=== PATIENT | male | born 1940 | race Caucasian/White ===

== ENCOUNTER 2017-07-13 10:45 | Outpatient (CLI) | payer MEDICARE, OTHER ==
[~2017-07-13] VITALS: Ht 175.3 cm; Wt 86.2 kg
[2017-07-13 11:06] VITALS: BP 134/85
--- NOTE | 2017-07-13 11:13 | HISTORY AND PHYSICAL ---
DATE OF SERVICE: CHIEF COMPLAINT: To have ganglion removed from the right foot this Thursday by Dr. Kaur. ALLERGIC TO MEDICATIONS: Denies. MEDICATIONS NOW ON: Denies. PREVIOUS SURGERY: Gallbladder in 2004, and tonsils at age 6. FAMILY HISTORY: Denies asthma, TB, diabetes, heart disease, lung disease, cancer. REVIEW OF SYSTEMS: HEAD: Denies headache, dizziness, or fainting. EYES, EARS, NOSE AND THROAT: Denies diplopia, tinnitus or sore throat. RESPIRATORY: Denies ever smoking. Denies asthma, TB, coughing congestion, or wheezing. HEART: No history of heart problems, chest pain or heart murmur. GASTROINTESTINAL: Appetite good. Denies blood in stools, diarrhea, constipation, also vomiting. GENITOURINARY: Denies blood, pain, or frequency. PHYSICAL EXAMINATION: GENERAL: The patient is a white male, well nourished, well developed, in no acute respiratory distress at rest. VITAL SIGNS: Pulse 64, blood pressure 130/80, weight 189. HEENT: Ears are not inflamed. Eyes, no conjunctivitis or icterus. Throat, not inflamed. NECK: Thyroid not enlarged. No abnormal cervical lymphadenopathy noted. HEART: Regular rate and rhythm. LUNGS: Clear to auscultation. ABDOMEN: Soft. Liver and spleen nonpalpable. EXTREMITIES: No pretibial edema. Good dorsalis pedis pulses. ASSESSMENT AND PLAN: The patient is okay to have surgery. I will be on standby if the patient has any problem. Job ID: [id number] DocumentID: [id number] Dictated Date: 07/13/2017 10:20:55 Donation Specialist Date: 07/13/2017 10:58:24 Dictated By: ITZEL DANIEL DO
== END 2017-07-13 11:05 | disposition home or self-care (01) ==
LOC: PREOP 10:45
PROVIDERS: ATTEND Podiatrist Foot Surgery
DX: Z01.818 Encounter for other preprocedural examination (principal); Z11.2 Encounter for screening for other bacterial diseases; M67.471 Ganglion, right ankle and foot
CPT/HCPCS: 87081

== ENCOUNTER 2017-07-17 08:00 | Day surgery (SDC) | payer MEDICARE, OTHER ==
[~2017-07-17] VITALS: Ht 175.3 cm; Wt 86.2 kg
[2017-07-17] MEDS ORDERED: NS (IVPB) 100 ML ONE (08:19)
[2017-07-17] MEDS ORDERED: ceFAZolin 1,000 MG (ANCEF) VIAL ONE (08:19)
[2017-07-17 08:33] VITALS: BP 131/93
[2017-07-17] MEDS: LACTATED RINGERS 1,000 ML IV PRN ×2 (08:33→10:22)
[2017-07-17] MEDS ORDERED: ceFAZolin INJECTION 1,000 MG in NS (IVPB) 100 ML IV ONE (08:45)
[2017-07-17] MEDS ORDERED: MEPIVACAINE (CARBOCAINE) 2% 20 ML VIAL ONE (09:00)
[2017-07-17] MEDS ORDERED: BUPIVACAINE 0.5% 30 ML (SENSORCAINE) VIAL ONE (09:00)
[2017-07-17] MEDS ORDERED: fentaNYL INJECTION 100 MCG/2 ML AMP ONE (09:12)
[2017-07-17] MEDS ORDERED: MIDAZOLAM 2 MG/2 ML (VERSED) VIAL ONE (09:13)
--- NOTE | 2017-07-17 09:18 | Progress Note-Pre Operative ---
Pre-Operative Progress Note H&P Reviewed The H&P was reviewed, patient examined and no changes noted. Date Seen by Provider: Jul 17, 2017 Time Seen by Provider: 09:17 Date H&P Reviewed: Jul 17, 2017 Time H&P Reviewed: 09:18 Pre-Operative Diagnosis: ganglion cyst right foot with dorsal tarsal bossing ITZEL POE DPM Jul 17, 2017 09:18
[2017-07-17] MEDS ORDERED: ONDANSETRON 4 MG/2 ML (SDV) Z0FRAN ONE (09:37)
[2017-07-17] MEDS ORDERED: SEVOFLURANE (ULTANE) 15 ML INHAL SOLN ONE ×4 (09:37→10:23)
[2017-07-17] MEDS ORDERED: LIDOCAINE PF 2% 5 ML (XYLOCAINE) VIAL ONE (09:37)
[2017-07-17] MEDS ORDERED: LIDOCAINE JELLY 2% (XYLOCAINE) 5 ML TUBE ONE (09:37)
[2017-07-17] MEDS ORDERED: proPOfol 200 MG/20 ML (DIPRIVAN) VIAL IV ONE (09:37)
--- NOTE | 2017-07-17 10:40 | Progress Note-Post Operative ---
Post-Operative Progess Note Surgeon (s)/Repairer Auto Clocks (s) Surgeon ITZEL POE DPM Repairer Auto Clocks: none Pre-Operative Diagnosis ganglion cyst right foot with dorsal tarsal bossing Post-Operative Diagnosis same Procedure & Operative Findings Date of Procedure 07/17/17 Procedure Performed/Findings excision of ganglion cyst and dorsal bossing Anesthesia Type jean carlos with infiltration Estimated Blood Loss Estimated blood loss (mL): min Specimens/Packing Specimens Removed ganglion cyst from right foot Packing: none ITZEL POE DPM Jul 17, 2017 10:40 am
--- NOTE | 2017-07-17 10:41 | Discharge Instructions ---
Discharge Instructions Discharge Medications New, Converted or Re-Newed RX: RX Given to Pt/Family Patient Instructions Patient Instructions 1. Follow up in office in 2 weeks. 2. Diet as tolerated. 3. Activity as tolerated. Activity & Diet Activity as Tolerated: Yes ITZEL POE DPM Jul 17, 2017 10:41 am
[2017-07-17] MEDS ORDERED: LACTATED RINGERS 1,000 ML IV SCH (10:42)
[2017-07-17] MEDS ORDERED: HYDROcodone/APAP 5 MG/325 MG (LORTAB) TAB PO PRN (10:45)
[2017-07-17] MEDS ORDERED: MEPERIDINE (DEMEROL) INJ 50 MG/ML IVP PRN (10:45)
[2017-07-17] MEDS ORDERED: ONDANSETRON 4 MG/2 ML (SDV) Z0FRAN IVP PRN (10:45)
[2017-07-17] MEDS ORDERED: morphine INJ 10 MG/ML 1ML (SYR OR VIAL) IVP PRN (10:45)
--- NOTE | 2017-07-17 11:17 | Diagnostic Imaging Report ---
INDICATION: Postop right foot pain. COMPARISON: None. FINDINGS: Two radiographic views of the right foot were obtained. There is mild soft tissue edema and soft tissue emphysema. No unexpected radiopaque foreign bodies are seen. Degenerative changes of the right foot are noted. There is however no evidence of acute fracture or dislocation. Bony structures are intact. Joint spaces are otherwise maintained. IMPRESSION: Mild soft tissue edema and emphysema. This is not unexpected given patient's recent postsurgical status. No unexpected radiopaque foreign bodies are seen. Dictated by: Dictated on workstation # [id number]
[2017-07-17 11:25] VITALS: BP 142/88
[2017-07-17 11:55] VITALS: BP 144/85
[2017-07-17 12:25] VITALS: BP 136/91
--- NOTE | 2017-07-17 12:49 | Physical Therapy Progress Note ---
Therapy Progress Note Patient is WBAT right foot with use of crutches he has established and has use prior. No skilled PT indicated. 1 visit RADHA PRICE PT Jul 17, 2017 12:49
[2017-07-17 12:55] VITALS: BP 136/91
--- NOTE | 2017-07-17 14:09 | Anesthesia-General Post-Op ---
General Patient Condition Mental Status/LOC: Same as Preop Cardiovascular: Satisfactory Nausea/Vomiting: Absent Respiratory: Satisfactory Pain: Controlled Complications: Absent Post Op Complications Complications None Follow Up Care/Instructions Patient Instructions None needed. Anesthesia/Patient Condition Patient Condition Patient is doing well, no complaints, stable vital signs, no apparent adverse anesthesia problems. No complications reported per nursing. RM CAMPBELL CRNA Jul 17, 2017 14:09
--- NOTE | 2017-07-17 14:38 | OPERATIVE REPORT ---
DATE OF SERVICE: 07/17/2017 PREOPERATIVE DIAGNOSIS: Ganglion cyst, dorsum right foot with dorsal tarsal bossing. POSTOPERATIVE DIAGNOSIS: Ganglion cyst, dorsum right foot with dorsal tarsal bossing. NAME OF OPERATION: Excision of ganglion cyst, dorsum right foot with excision of dorsal exostosis and tarsal bossing. DESCRIPTION OF OPERATION: With the patient in supine position, having been effected by a general anesthetic and local anesthetic infiltration utilizing 6 mL of a 50:50 mixture of 0.5% Marcaine plain and 1% Carbocaine plain, sterile prep and drape were performed and a Jordi bandage was applied above the level of the right ankle. A 5 cm curvilinear incision was made over the dorsal aspect of the right foot, deepened with sharp and blunt dissection, vital structures identified and retracted. A well-developed fusiform fibrofatty mass was noted on the dorsum of the right foot that appeared to be in a linear fashion along the lines of the extensor brevis muscle belly. This was excised in toto. Dissection was carried deep to the second and third metatarsal cuneiform complex. Vital structures again were identified and retracted and a dorsal exostosis was noted at the same location. This was excised in toto with the use of a bone rongeur and the remaining bony surface was rasped smooth. The area was inspected for any other anatomical abnormalities and none were noted. Deep closure was accomplished via continuous suture of 3-0 Vicryl. Skin was reapproximated with continuous locked suture of 4-0 Prolene. Tourniquet was released. Blood flow returned to the digits, which was within normal limits. Adaptic and sterile corrective compressive wet to dry Betadine dressings were applied, carried above the level of the right ankle and covered with circular Coban. The patient tolerated the procedure well with minimal blood loss, left the OR to the PAR and will be seen in the office in 2 weeks for appropriate followup care. Job ID: [id number] DocumentID: [id number] Dictated Date: 07/17/2017 10:54:56 Flat Clothier Date: 07/17/2017 14:37:59 Dictated By: ITZEL POE DPM
== END 2017-07-17 12:55 | disposition home or self-care (01) ==
LOC: SDC 08:00
PROVIDERS: ATTEND Podiatrist Foot Surgery
DX: M67.471 Ganglion, right ankle and foot (principal)
CPT/HCPCS: 73620

== ENCOUNTER 2018-10-04 11:11 | Emergency (ER) | payer MEDICARE, OTHER ==
[~2018-10-04] VITALS: Ht 175.3 cm; Wt 79.4 kg
[2018-10-04] MEDS ORDERED: KETOROLAC 30 MG/ML VIAL IM ONE (11:45)
--- NOTE | 2018-10-04 11:45 | ED Fall/Injury ---
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 PT C/O RIGHT SHOULDER PAIN THAT RADIATES TO LEFT PEC MUSCLE. PT STATES HE DID HIT HIS HEAD BUT DENIES CONFUSION. PT DENIES BLOOD THINNERS. PT DENIES NUMBNESS OR TINGLING IN HIS EXTREMETIES. Source: patient Exam Limitations: no limitations History of Present Illness Date Seen by Provider: Oct 04, 2018 Time Seen by Provider: 11:30 Initial Comments Patient presents to ER with his with chief complaint that one week ago he was in the back of his truck working and he fell out onto his right shoulder. He did not get it checked out that time he was just sore. He said he felt like the wind was knocked out of him and denies striking his head or loss of consciousness. He does not take a blood thinner. He does not have any significant medical history. He said his pain is continued to persist and it's very hard for him to take deep breaths without causing worsening pain. No cough fevers chills. He is concerned that if he goes on to long he might end up with a pneumonia and that he may have broke a rib. He did try some ibuprofen initially but said that it did not help much so he has not been taking anything for the pain. Allergies and Home Medications Allergies Coded Allergies: No Known Drug Allergies (Unverified , 07/13/17) Home Medications No Active Prescriptions or Reported Meds Patient Home Medication List Home Medication List Reviewed: Yes Review of Systems Review of Systems Constitutional: No chills, No fever Eyes: Denies Blindness, Denies Blurred Vision Ears, Nose, Mouth, Throat: denies ear pain, denies ear discharge Respiratory: No cough, No short of breath Cardiovascular: No chest pain, No edema Gastrointestinal: No abdominal pain, No constipation, No nausea Past Jykfdfy-Otumig-Ntrele Hx Patient Social History Alcohol Use: Denies Use Recreational Drug Use: No Smoking Status: Never a Smoker Recent Foreign Travel: No Contact w/Someone Who Travel: No Recent Infectious Disease Expo: No Recent Hopitalizations: No Physical Abuse: No Sexual Abuse: No Mistreated: No Fear: No Seasonal Allergies Seasonal Allergies: No Past Medical History Surgeries: Yes Gallbladder Respiratory: No Cardiac: No Neurological: No Gastrointestinal: No Musculoskeletal: No Endocrine: No Cancer: Yes Skin What Type of Treatment Did You: Surgical Intervention Psychosocial: No Integumentary: No Blood Disorders: No Physical Exam Vital Signs Vital Signs - First Documented 10/04/18 11:23 Temp 97.6 Pulse 75 Resp 18 B/P (MAP) 133/83 (100) Pulse Ox 96 O2 Delivery Room Air Capillary Refill : Less Than 3 Seconds Height, Weight, BMI Height: 5'9.00" Weight: 175lbs. 0.0oz. 79.582639kw; 28.1 BMI Method:Stated General Appearance: WD/WN, no apparent distress HEENT: PERRL/EOMI, normal ENT inspection Neck: full range of motion, normal inspection Cardiovascular: normal peripheral pulses, regular rate, rhythm Respiratory: lungs clear, normal breath sounds, no respiratory distress, no accessory muscle use, other (anterior midclavicular superior chest wall is exquisitely tender to palpation. He has some tenderness along the clavicle as well as on flexion of the pectoralis muscles) Neurologic/Psychiatric: no motor/sensory deficits, alert, normal mood/affect, oriented x 3 Skin: normal color, warm/dry Harrison Coma Score Best Eye Response: (4) Open Spontaneously Best Verbal Response: (5) Oriented Best Motor Response: (6) Obeys Commands Nati Total: 15 Progress/Results/Core Measures Results/Orders My Orders Orders - TRISTAN TERRY Ketorolac Injection (Toradol Injection) (10/04/18 11:45) Ribs/Unilateral With Chest (10/04/18 11:37) Shoulder, Right, 3 Views (10/04/18 11:37) Medications Given in ED Current Medications Medications Dose Ordered Sig/Janet Route Start Time Stop Time Status Last Admin Dose Admin Ketorolac Tromethamine 30 mg ONCE ONCE IM 10/04/18 11:45 10/04/18 11:46 DC 10/04/18 11:50 30 MG Vital Signs/I&O 10/04/18 11:23 Temp 97.6 Pulse 75 Resp 18 B/P (MAP) 133/83 (100) Pulse Ox 96 O2 Delivery Room Air Blood Pressure Mean: 100 Diagnostic Imaging Diagonstic Imaging: Xray Plain Films/CT/US/NM/MRI: chest (ribs) Comments [facility] [employer] [place] NAME: [facility] REC#: [id number] PT STATUS: REG ER : 1940 PHYSICIAN: TRISTAN TERRY MD ADMIT DATE: 10/04/18/ER Draft Date of Exam:10/04/18 RIBS/UNILATERAL WITH CHEST INDICATION: Fall with right-sided pain. FINDINGS: Benign calcified granuloma in the right upper quadrant noted. Benign calcification projects adjacent to the proximal humeral diaphysis, probably calcification within the bicipital tendon sheath. No lung contusion, pneumothorax, or hemothorax. There is no free air beneath the diaphragms. Cardiomediastinal and hilar contours were normal. No rib fracture deformity or bony destructive process. No evidence for subpleural hematoma. IMPRESSION: No acute or post-traumatic sequelae identified. Dictated on workstation # [id number] Dict: 10/04/18 1208 Trans: 10/04/18 1211 [facility] [id number] Interpreted by: JACK NICOLAS Electronically signed by: Reviewed: Reviewed by Ok Diagonstic Imaging: Xray Plain Films/CT/US/NM/MRI: other (r shoulder) Comments NAME: [facility] REC#: [id number] PT STATUS: REG ER : 1940 PHYSICIAN: TRISTAN TERRY MD ADMIT DATE: 10/04/18/ER Draft Date of Exam:10/04/18 SHOULDER, RIGHT, 3 VIEWS INDICATION: Fall, shoulder pain. FINDINGS: The AC joint shows degenerative changes but no separation. The coracoclavicular space is normal. There are degenerative changes to the glenohumeral joint. No erosive component. Benign calcified right upper lobe granuloma noted. No radiopaque loose body. IMPRESSION: Shoulder arthritis but no fracture, erosion, loose body, or acute finding. Dictated on workstation # [id number] Dict: 10/04/18 1205 Trans: 10/04/18 1209 [id number] Interpreted by: JACK NICOLAS Electronically signed by: Departure Impression Primary Impression: Bruised rib Qualified Codes: S20.211A - Contusion of right front wall of thorax, initial encounter Additional Impression: Fall Qualified Codes: W19.XXXA - Unspecified fall, initial encounter Disposition: 01 HOME, SELF-CARE Condition: Stable Departure-Patient Inst. Decision time for Depature: 12:17 Referrals: NO,LOCAL PHYSICIAN (PCP) Primary Care Physician Patient Instructions: Bruised Rib (DC) Add. Discharge Instructions: Tylenol 1000 mg every 8 hours as needed for pain. Consider using the naproxen 1 tablet twice a day for the next 1-2 weeks for pain relief. Topical creams may be helpful. If you have to cough use a pillow to splint and decrease the amount of pain you're feeling. Use the incentive spirometer 4-10 times per hour for the next 1-2 weeks to help prevent pneumonia. If you begin to have fevers, chills, productive cough then you should follow-up with your doctor or return to the ER for further evaluation. All discharge instructions reviewed with patient and/or family. Voiced understanding. Scripts Naproxen (Naprosyn) 500 Mg Tablet 500 MG PO BID for 14 Days, #30 TAB 0 Refills Prov: TRISTAN TERRY 10/04/18 TRISTAN TERRY Oct 04, 2018 11:44
--- NOTE | 2018-10-04 12:10 | Diagnostic Imaging Report ---
INDICATION: Fall, shoulder pain. FINDINGS: The AC joint shows degenerative changes but no separation. The coracoclavicular space is normal. There are degenerative changes to the glenohumeral joint. No erosive component. Benign calcified right upper lobe granuloma noted. No radiopaque loose body. IMPRESSION: Shoulder arthritis but no fracture, erosion, loose body, or acute finding. Dictated by: Dictated on workstation # [id number]
--- NOTE | 2018-10-04 12:12 | Diagnostic Imaging Report ---
INDICATION: Fall with right-sided pain. FINDINGS: Benign calcified granuloma in the right upper quadrant noted. Benign calcification projects adjacent to the proximal humeral diaphysis, probably calcification within the bicipital tendon sheath. No lung contusion, pneumothorax, or hemothorax. There is no free air beneath the diaphragms. Cardiomediastinal and hilar contours were normal. No rib fracture deformity or bony destructive process. No evidence for subpleural hematoma. IMPRESSION: No acute or post-traumatic sequelae identified. Dictated by: Dictated on workstation # [id number]
[2018-10-04] MEDS ORDERED: NAPR-1071 PO (12:19)
[2018-10-04 12:56] VITALS: BP 133/83
== END 2018-10-04 12:52 | disposition home or self-care (01) ==
LOC: EDUNIT# 11:11 → ER 11:12
DX: S20.211A Contusion of right front wall of thorax, initial encounter (principal); R40.2142 Coma scale, eyes open, spontaneous, at arrival to emergency department; R40.2252 Coma scale, best verbal response, oriented, at arrival to emergency department; R40.2362 Coma scale, best motor response, obeys commands, at arrival to emergency department; Z85.828 Personal history of other malignant neoplasm of skin; V58.4XXA Person boarding or alighting a pick-up truck or van injured in noncollision transport accident, initial encounter
CPT/HCPCS: 71101; 73030